=== PATIENT | female | born 1950 | race African-American/Black ===

== ENCOUNTER 2021-04-04 18:58 | Emergency (ER) | payer MEDICARE, OTHER ==
[~2021-04-04] VITALS: Ht 162.6 cm; Wt 107.2 kg
[2021-04-04] MEDS ORDERED: LIDOCAINE 2%/EPI 1:100,000 20 ML VIAL. INJ ONE (21:00)
[2021-04-04] MEDS ORDERED: CEPH500C PO (22:51)
--- NOTE | 2021-04-04 22:52 | ED.ADGEN ---
Past Medical History Past Medical History: Diabetes-Type II, Hypertension Past Surgical History: No Surgical History Smoking Status: Never Smoker Alcohol Use: None General Adult EDM: Chief Complaint: LACERATION/AVULSION HPI: HPI: Patient is a 70 year old AA female who presents emergency department with complaints of a laceration to her left lateral thumb, left forearm, and anterior upper chest. Patient [place] of pick[place] when she tripped over a cooler and fell patient reports that she landed on top of the broken jar pickles. She denies any loss of consciousness, head, neck, or back pain. Patient reports she has been able to ambulate since the fall. She states that her knees feel sore but denies any bony abnormality or difficulty walking. Patient reports her last tetanus was less than 5 years ago. She denies any chest pain, palpitations, shortness of breath, wheezing, numbness, tingling, or headache. She currently rates her pain a 5 out of 10 on the pain scale, she states the pain is located in her left thumb. Patient denies any decreased range of motion or loss of sensation of the affected digit. Review of Systems: Review of Systems: Complete ROS is negative unless otherwise noted in HPI. Current Medications: Current Medications Medications (Trade) Dose Ordered Sig/[facility] Start Time Stop Time Status Last Admin Dose Admin Lidocaine/ Epinephrine (LIDOCAINE 2%-EPI 1:100,000 multi-dose) 20 ml 1X ONCE 04/04/21 21:00 04/04/21 21:01 DC 04/04/21 21:04 20 ML Allergies: Allergies: Allergies Coded Allergies Type Severity Reaction Last Updated Verified No Known Drug Allergies 04/04/21 No Physical Exam: PE: See Above Constitutional: Well developed, well nourished, no acute distress, non-toxic appearance. [] HENT: Normocephalic, atraumatic, bilateral external ears normal, nose normal. [] Eyes: PERRLA, EOMI, conjunctiva normal, no discharge. [] Neck: Normal range of motion, no stridor. [] Cardiovascular:Heart rate regular rhythm Lungs & Thorax: Respirations even and unlabored, no retractions, no respiratory distress Skin: Warm, dry, no erythema, no rash; 3 cm linear laceration to lateral proxim al left thumb, 3 linear lacerations to anterior chest: the superior laceration measures 2.5 cm, medial laceration measures 1.5 cm, inferior laceration is mostly superficial and measures 4 cm; there is a V-shaped flap laceration to the left anterior chest wall, several superficial abrasions noted to her chest; bleeding is controlled at all laceration sites, there are no visible foreign bodies Extremities: Left thumb: No bony tenderness or crepitus, sensation intact, full extension flexion, no cyanosis, ROM intact, no edema. [] Neurologic: Alert and oriented X 3, normal motor, normal sensory, no focal deficits noted. [] Psychologic: Affect normal, judgement normal, mood normal. [] Current Patient Data: Vital Signs: Vital Signs Date Time Temp Pulse Resp B/P (MAP) Pulse Ox O2 Delivery O2 Flow Rate FiO2 04/04/21 20:09 98.1 74 19 180/82 (114) 100 Room Air 98.1 EKG: EKG: [] Heart Score: C/O Chest Pain: No Radiology/Procedures: Radiology/Procedures: Laceration Repair by me: Anesthesia: 2% lidocaine with epi Location: Left thumb Tendon/Joint/Nerves: No injury Foreign body: None detected after copious irrigation and exploration with NS and chlorhexidine Technique: 7 simple Interrupted Sutures with 4-0 Ethilon Complexity: No subcutaneous sutures/mucosal repair/edge excision Post Closure Length: 3 cm Anesthesia: 2% lidocaine with epi Location: Left forearm Tendon/Joint/Nerves: No injury Foreign body: None detected after copious irrigation and exploration with NS and chlorhexidine Technique: 1 simple Interrupted Suture with 4-0 Ethilon Complexity: No subcutaneous sutures/mucosal repair/edge excision Post Closure Length: 0.5 cm Anesthesia: 2% lidocaine with epi Location: Superior anterior chest Tendon/Joint/Nerves: No injury Foreign body: None detected after copious irrigation and exploration with NS and chlorhexidine Technique: 5 simple Interrupted Sutures with 4-0 Ethilon Complexity: No subcutaneous sutures/mucosal repair/edge excision Post Closure Length: 3 cm Anesthesia: 2% lidocaine with epi Location: Middle anterior chest Tendon/Joint/Nerves: No injury Foreign body: None detected after copious irrigation and exploration with NS and chlorhexidine Technique: 3 simple Interrupted Sutures with 4-0 Ethilon Complexity: No subcutaneous sutures/mucosal repair/edge excision Post Closure Length: 1.5 cm Anesthesia: 2% lidocaine with epi Location: Inferior anterior chest Tendon/Joint/Nerves: No injury Foreign body: None detected after copious irrigation and exploration with NS and chlorhexidine Technique: 2 simple Interrupted Sutures with 4-0 Ethilon to the superior portion of the laceration, the medial and inferior regions were closed with Steri-Strips Complexity: No subcutaneous sutures/mucosal repair/edge excision Post Closure Length: 4 cm Patient's bleeding was easily controlled in the department and there is no indication of anemia. No evidence of compartment syndrome, neurologic injury, vascular injury, open joint, tendon laceration, or foreign body. Patient is appropriate for outpatient follow up. Scar minimazation instructions given. [] [] Course & Med Decision Making: Course & Med Decision Making Pertinent Labs and Imaging studies reviewed. (See chart for details) Patient is a 62-year-old female who presented emergency department for treatment of multiple lacerations and abrasions. Wound repairs as documented above. I offered the patient x-rays of her knees and her left thumb. The patient declined x-rays. Prescription written for Keflex. Patient encouraged to follow-up with her primary care doctor return to the ER in 10 to 14 days to have sutures removed, follow-up sooner if signs of infection or fever develop. Patient verbalized an understanding of home care, medications, follow-up, and return to ED instructions and was in agreement with the plan of care. [] Dragon Disclaimer: Dragon Disclaimer: This electronic medical record was generated, in whole or in part, using a voice recognition dictation system. Departure Departure Impression: Primary Impression: Laceration of left thumb without foreign body without damage to nail Additional Impressions: Laceration of skin of left forearm Laceration of left chest wall Laceration of chest wall Pain of left thumb Bilateral anterior knee pain Fall on same level from tripping as cause of accidental injury Disposition: 01 HOME / SELF CARE / HOMELESS Condition: STABLE Referrals: KATHI DE SANTIAGO MD (PCP) Patient Instructions: Laceration Care, Adult, [id number] Additional Instructions: You may take Tylenol or ibuprofen as needed for pain. Fill the prescription and use it as directed. Keep the sutured areas clean and dry. Keep the dressings that were placed today on for 24 hours then change the dressings twice a day and wash with soap and water. Follow-up with your primary care doctor, or return to the emergency room in 10-14 days to have the sutures removed, sooner if you develop signs of infection including: redness, warmth, drainage, or a fever. Scripts Cephalexin (CEPHALEXIN) 500 Mg Capsule 1 CAP PO TID for 7 Days, #21 CAP 0 Refills Prov: DIANA PALOMARES APRN 04/04/21 Problem Qualifiers Primary Impression: Laceration of left thumb without foreign body without damage to nail Encounter type: initial encounter Qualified Codes: S61.012A - Laceration without foreign body of left thumb without damage to nail, initial encounter Additional Impressions: Laceration of skin of left forearm Encounter type: initial encounter Qualified Codes: S51.812A - Laceration without foreign body of left forearm, initial encounter Laceration of chest wall Encounter type: initial encounter Laterality: unspecified laterality Qualified Codes: S21.119A - Laceration without foreign body of unspecified front wall of thorax without penetration into thoracic cavity, initial encounter DIANA PALOMARES RETOUCHER Apr 04, 2021 22:52
[2021-04-04 23:30] VITALS: BP 180/82
== END 2021-04-04 23:33 | disposition home or self-care (01) ==
LOC: ER 18:58
DX: S61.012A Laceration without foreign body of left thumb without damage to nail, initial encounter (principal); S51.812A Laceration without foreign body of left forearm, initial encounter; S21.112A Laceration without foreign body of left front wall of thorax without penetration into thoracic cavity, initial encounter; M25.562 Pain in left knee; M25.561 Pain in right knee; E11.9 Type 2 diabetes mellitus without complications; I10 Essential (primary) hypertension; W01.0XXA Fall on same level from slipping, tripping and stumbling without subsequent striking against object, initial encounter; Y93.89 Activity, other specified; Y92.89 Other specified places as the place of occurrence of the external cause; Y99.8 Other external cause status
CPT/HCPCS: 12004; 99284; J3490